=== PATIENT | female | born 1995 | race Caucasian/White ===

== ENCOUNTER 2017-10-12 08:19 | Emergency (ER) | payer OTHER ==
[2017-10-12] MEDS ORDERED: methylPREDNISolone Sod Succ/PF 125 MG/2 ML VIAL ONE (08:50)
[2017-10-12] MEDS ORDERED: Famotidine 20 MG TAB ONE (08:50)
[2017-10-12] MEDS ORDERED: diphenhydrAMINE 50 MG/ML VIAL ONE (08:50)
--- NOTE | 2017-10-12 11:17 | RAD ---
PA AND LATERAL CHEST: Date: 10/12/17 HISTORY: Shortness of breath. Allergic reaction. FINDINGS: Cardiac silhouette and pulmonary vasculature are within normal limits. The lungs are clear. The osseo us structures are intact. IMPRESSION: No acute cardiopulmonary process. POS: [facility]
== END 2017-10-12 12:51 | disposition home or self-care (01) ==
LOC: ERS 08:19
DX: L23.9 Allergic contact dermatitis, unspecified cause (principal)
CPT/HCPCS: 71046; 93005; 96374; 96375; J1200; J2930

== ENCOUNTER 2018-06-11 13:25 | Emergency (ER) | payer OTHER ==
[2018-06-11 15:08] LABS: Pregnancy Test - Urine (BHCG) Negative (Negative); Pregu Control Background? CLEAR/WHITE (CLR/WHITE); Pregu Control Bar Appear? YES (CONTROL BAR); Specific Gravity 1.013 (1.002-1.036)
[2018-06-11] MEDS ORDERED: Ondansetron PF 4 MG/2 ML Vial ONE (15:19)
[2018-06-11] MEDS ORDERED: diphenhydrAMINE 50 MG/ML VIAL ONE (15:21)
[2018-06-11] MEDS ORDERED: Ketorolac Tromethamine 30 MG/ML VIAL ONE (15:21)
[2018-06-11] MEDS ORDERED: Metoclopramide HCl 10 MG/2 ML VIAL ONE (15:21)
--- NOTE | 2018-06-11 15:39 | CT ---
CT BRAIN WITHOUT CONTRAST: HISTORY: Headache. Migraine. FINDINGS: No evidence of infarct, hemorrhage, midline shift, or abnormal extraaxial fluid collections is seen. The ventricular size is normal, and the basilar cisterns are patent. The bony calvarium is intact. The visualized paranasal sinuses and mastoid air cells are well aerated. IMPRESSION: No CT evidence of acute intracranial process. POS: [facility]
== END 2018-06-11 17:10 | disposition home or self-care (01) ==
LOC: ERS 13:25
DX: G43.909 Migraine, unspecified, not intractable, without status migrainosus (principal)
CPT/HCPCS: 70450; 81025; 93005; 96361; 96365; 96375; J1200; J1885; J2405; J2765

== ENCOUNTER 2018-08-30 15:28 | Outpatient (CLI) | payer OTHER | END 2018-08-30 15:29 | disposition home or self-care (01) | LOC: CTENTCT 15:28 | PROVIDERS: ATTEND Specialist | DX: J01.81 Other acute recurrent sinusitis (principal) | CPT/HCPCS: 70486 ==

== ENCOUNTER 2019-10-15 08:51 | Outpatient (CLI) | payer OTHER ==
--- NOTE | 2019-10-15 09:36 | RAD ---
CERVICAL SPINE 7 VIEWS: HISTORY: Left shoulder pain and lower neck pain. FINDINGS: On the open-mouth projection, lateral masses of C1 and C2 articulate appropriately. Intact odontoid process. On the AP projection, no malalignment. Oblique projections demonstrate patent bilateral neural foramina. On the swimmer's view, cervicothoracic junction does not demonstrate any abnormality. Predental space is normal. Cervical spine vertebral body heights are maintained. No fractures. Dis k space heights are preserved. Straightening of cervical lordosis in the lateral projection is presu med to be positional. No prevertebral soft tissue swelling. IMPRESSION: No radiographic abnormalities. MRI if there is concern. POS: [facility]
== END 2019-10-15 08:52 | disposition home or self-care (01) ==
LOC: SCSRAD 08:51
PROVIDERS: ATTEND Psychiatry & Neurology Neurology
DX: G24.3 Spasmodic torticollis (principal)
CPT/HCPCS: 72050